=== PATIENT | male | born 1955 | race Caucasian/White ===

== ENCOUNTER 2018-09-08 08:00 | Outpatient (RCR) | payer BC | END 2018-09-12 09:11 | disposition home or self-care (01) | LOC: WSPT 08:00 | DX: M72.2 Plantar fascial fibromatosis (principal) ==

== ENCOUNTER 2022-09-18 06:07 | Day surgery (SDC) | payer MEDICARE ==
[~2022-09-18] VITALS: Ht 185.4 cm; Wt 102.3 kg
[2022-09-18] MEDS ORDERED: COZAAR100 MG PO (06:35)
[2022-09-18] MEDS ORDERED: GLUCOPHAGE500 MG/TAB PO (06:36)
[2022-09-18] MEDS ORDERED: TIROSINT50 MC1 PO (06:36)
[2022-09-18] MEDS ORDERED: LIPITOR 10MG10 MG PO (06:37)
[2022-09-18 06:38] VITALS: BP 132/87; PULSE 63; TEMP 97.7
[2022-09-18] MEDS ORDERED: PRILOSEC 20MG20 MG PO (06:38)
[2022-09-18 07:40] VITALS: BP 105/67; PULSE 50; TEMP 97.7
--- NOTE | 2022-09-18 07:45 | NUR ---
0740 RETURNS TO ROOM 1 PER CART. AWAKE, ALERT. AMBULATES TO RECLINER WITH STANDBY ASSIST. RESP UNLABORED. DENIES NAUSEA OR ABD PAIN. CALL LIGHT AT SIDE. IN ROOM. 0741 DR. MCNEAL HERE TO VISIT WITH PATIENT. 0745 TOLERATES PO SPRITE AND MUFFIN WITHOUT NAUSEA. 0748 DISCHARGE INSTRUCTIONS REVIEWED. PATIENT VERBALIZES UNDERSTANDING. COPY PROVIDED IN DISCHARGE FOLDER. 0759 DRESSES SELF
[2022-09-18 07:55] VITALS: BP 119/71; PULSE 50
== END 2022-09-18 08:00 | disposition home or self-care (01) ==
LOC: SDCO 06:07
DX: Z12.11 Encounter for screening for malignant neoplasm of colon (principal); D12.0 Benign neoplasm of cecum; K57.30 Diverticulosis of large intestine without perforation or abscess without bleeding
CPT/HCPCS: J2405; J2704; J7120